=== PATIENT | female | born 1960 | race Caucasian/White ===

== ENCOUNTER 2021-02-23 10:20 | Emergency (ER) | payer BC, SELFPAY ==
[2021-02-23 10:25] VITALS: BP 154/73; RESP 16; TEMP 36.9; O2SAT 99; BMI 33.6
--- NOTE | 2021-02-23 13:52 | CT_ITS ---
WS: [id number] CT head wo con* [id number] REASON FOR EXAM: forehead laceration/trauma IV CONTRAST ADMINISTERED: TOTAL EXAM DLP: 999.[address] scans at [facility] use at least one of these dose optimization techniques: automat ed exposure control; mA and/or kV adjustment per patient size (includes targeted exams where dose is matched to clinical indication); or iterative reconstruction. FINDINGS: Soft tissue injury right forehead with small hematoma. The base of the skull and the calvarium are intact. Zygomatic arches and bony structure of the of the frontal and maxillary sinuses and orbits are intact . Temporomandibular joints are intact. Superior nasal spine is intact. INTRACRANIAL: There is no midline shift or other significant mass effect. No findings of intracranial hemorrhage and no extra-axial fluid collection is noted. No acute focal brain parenchymal abnormality is noted in the cerebral hemispheres, brainstem, or cere bellar hemispheres. Normal ventricles. CT/CT head wo con* [id number] IMPRESSION: Soft tissue injury of the forehead with no bony structure abnormality as above. No acute intracranial abnormality.
--- NOTE | 2021-02-23 13:53 | W.ED.WOUNDLC ---
HPI - Wound/Laceration General: Chief Complaint: Wound/Laceration Stated Complaint: LACERATION TO FOREHEAD Time Seen by Provider: 02/23/21 10:26 Course Vital Signs: Vital signs: Vital Signs Temperature 98.4 F 02/23/21 10:25 Respiratory Rate 16 02/23/21 10:25 Blood Pressure 154/73 02/23/21 10:25 Pulse Oximetry 99 02/23/21 10:25 Coding Level of Care Code ED [employer] for [facility] Agosto
--- NOTE | 2021-02-23 13:55 | W.ED.HEATRA ---
HPI - Head Injury General: Chief complaint: Wound/Laceration Stated complaint: LACERATION TO FOREHEAD Time Seen by Provider: 02/23/21 10:26 Source: patient Mode of arrival: wheelchair Limitations: no limitations History of Present Illness: HPI Narrative: Patient is a nice 60-year-old female who presents to ED today with complaints of a laceration to her forehead. Patient tells me she was riding her horse when the horse bucked her off. She states she did not sustain any injuries when she fell off of the horse. She was able to get back up on her feet without difficulty. Patient tells me the horse then came back at me and knocked her down. Patient states a metal portion of the horse bridle struck her in the forehead. No LOC. No neck pain. She has no other complaints other than the laceration to her forehead. She has again been ambulatory without difficulty. No back pain. She was never stepped on by the animal. Complaint: head injury Onset (ago): hour(s) Mechanism of Injury: other (horse injury) Place: outdoors Loss of Consciousness: no Location of injury: frontal Severity: mild Radiation: none Other Injuries: none Associated symptoms: Reports no associated symptoms; Deny confusion, neck pain or vertigo Review of Systems Eyes: Denies: change in vision, blurry vision, blind spots, photophobia, floaters or seeing flashes Card: Denies: chest pain Resp: Denies: dyspnea GI: Denies: abdominal pain Musc: Denies: neck pain, back pain, extremity pain or joint pain Skin/Breast: Reports: other (forehead laceration) Neuro: Denies: headache(s), numbness in extremities, weakness in extremities, sensory changes, lack of coordination, difficulty walking, dizziness, vertigo, confusion, behavioral changes, Slurred speech present, difficulty communicating thoughts or seizure-like activity Physical Exam Const: COMMON NORMALS: no acute distress, average body habitus, patient oriented x3, no limitations, healthy appearing, alert and well nourished GENERAL APPEARANCE: cooperative ORIENTATION/CONSCIOUSNESS: Yes awake, Yes oriented to person, Yes oriented to place and Yes oriented to time HENMT: COMMON NORMALS: normocephalic, hearing grossly normal bilaterally, external ears normal, EAC's normal, TM's normal bilaterally and Normal external nose present HEAD & SCALP: normal to inspection, normocephalic and other (large irregular laceration to central forehead-approx 7cm) FACE & SINUS: normal facial exam NOSE: Normal external nose present EXTERNAL EAR: Yes external ears normal EXTERNAL AUDITORY CANAL: EAC's normal TYMPANIC MEMBRANE: TM's normal bilaterally MOUTH: Normal oral and palatal mucosa present and lip normal THROAT: posterior oropharynx normal Eye: COMMON NORMALS: Equal, round and reactive pupils present and EOMs intact bilaterally GENERAL EYE: appearance normal, both eyes and all related structures PUPIL: Yes Equal, round and reactive pupils present Neck/C-Spine: COMMON NORMALS: full ROM CERVICAL SPINE: No pain with cervical ROM, No Cervical spine tenderness and No Paracervical muscle tenderness Chest: COMMONS NORMALS: normal inspection of the chest and normal palpation of entire chest wall Resp: COMMON NORMALS: normal respiratory effort GI: COMMON NORMALS: Normal to inspection, nondistended, normoactive bowel sounds present, Soft to palpation and non-tender PALPATION: Yes Soft to palpation Back/Pelvis: COMMON NORMALS: thoracic and lumbar spine normal to inspection, no thoracic nor lumbar tenderness and thoraco-lumbar ROM normal Extremity: COMMON NORMALS: normal to inspection and full ROM GENERAL: Yes normal exam except as noted Neuro: GILMA COMA SCALE: document GCS findings Gilma coma scale eye opening: Spontaneous Gilma coma scale verbal response: Orientated Gilma coma scale motor response: Obey commands Gilma coma scale total score: 15 COMMON NORMALS: patient oriented x3, CN's II-XII intact bilaterally, moves all extremities, no focal motor deficits, no sensory deficits noted and gait normal SENSORIUM/ORIENTATION: Yes alert, Yes oriented to person, Yes oriented to place and Yes oriented to time Skin: NARRATIVE SKIN EXAM: see head assessment for pertinent skin findings TRAUMA: no abrasions and laceration Procedures Laceration Laceration 1: Site: face (forehead) Size (cm): 7.0 Description: stellate and irregular Depth: simple, single layer Local Anesthetic: lidocaine 1% and with epi Amount of anesthesia used (mL): 5.0 Pre-repair: wound explored and irrigated extensively Skin layer closed with: nylon and vicryl (1) Size (cm): 5-0 Number of sutures: 14 Technique: simple, interrupted Course Vital Signs: Vital signs: Vital Signs Temperature 98.4 F 02/23/21 10:25 Respiratory Rate 16 02/23/21 10:25 Blood Pressure 154/73 02/23/21 10:25 Pulse Oximetry 99 02/23/21 10:25 MDM - Head Injury Imaging Data^: CT Head: Radiologist's impression: [address] [place], [place] [address]ML Scan ReportSigned Patient: Rocky SAINI #: [id number]: 2Acct#:[id number]/Sex: 60 / FADM Date: 02/23/21Loc: ERRoom/Bed:Attending Dr: Ordering Provider/Ordering MD: Leola Urbina Date of Service: 02/23/21 Procedure(s): CT head wo con* [id number] Accession Number(s): [id number] Report Number: [id number] WS: [id number] CT head wo con* [id number] REASON FOR EXAM: forehead laceration/trauma IV CONTRAST ADMINISTERED: TOTAL EXAM DLP: 999.[address] scans at [facility] use at least one of these dose optimization techniques: automated exposure control; mA and/or kV adjustment per patient size (includes targeted exams where dose is matched to clinical indication); or iterative reconstruction. FINDINGS: Soft tissue injury right forehead with small hematoma. The base of the skull and the calvarium are intact. Zygomatic arches and bony structure of the of the frontal and maxillary sinuses and orbits are intact. Temporomandibular joints are intact. Superior nasal spine is intact. INTRACRANIAL: There is no midline shift or other significant mass effect. No findings of intracranial hemorrhage and no extra-axial fluid collection is noted. No acute focal brain parenchymal abnormality is noted in the cerebral hemispheres, brainstem, or cerebellar hemispheres. Normal ventricles. CT/CT head wo con* [id number] IMPRESSION: Soft tissue injury of the forehead with no bony structure abnormality as above. No acute intracranial abnormality. Dictated By:Carroll Vaz Jr MDSigned By:Carroll Vaz Jr MDSigned Date/Time:02/23/21 1514DD/ 1505 Discharge Plan Discharge Patient Disposition: Home Clinical Impression: Forehead laceration Qualifiers: Encounter type: initial encounter Qualified Code(s): S01.81XA - Laceration without foreign body of other part of head, initial encounter Condition: Stable Discharge Orders: Discharge ED (Routine); Ordered 02/23/21 Ordered By: Leola Urbina Patient Instructions: Suture Care (ED), Laceration (ED) Activity Restrictions/Additional Instructions: Keep wound/laceration clean with warm soap and water twice daily. Monitor for signs of infection such as redness, swelling, increased pain, or drainage. Please seek medical re-evaluation if these occur. If you received sutures today these will need to be removed (unless you were told by the provider that they are absorbable). The provider should have discussed with you the length of time until removal-7 DAYS. You may return to the emergency department for this service. If your wound was closed with Steri-Strips or glue/adhesive these will fall off within the next week or so. Coding Level of Care Code ED [employer] [facility] Fwaisha Exam Comprehensive
[2021-02-23] MEDS: tetanus-diphtheria tox (adult) 0.5 mL SDV IM (14:02)
--- NOTE | 2021-02-23 14:28 | PC.NURSE ---
pt taken to CT at this time
[2021-02-23 15:50] VITALS: BP 150/78; PULSE 87; RESP 19; TEMP 36.4; O2SAT 95
== END 2021-02-23 15:56 | disposition home or self-care (01) ==
PROVIDERS: Emergency Provider Physician Assistant
DX: S01.81XA Laceration without foreign body of other part of head, initial encounter (principal); W22.8XXA Striking against or struck by other objects, initial encounter; Y93.52 Activity, horseback riding
CPT/HCPCS: 12014; 70450; 90471; 90714; 99283